=== PATIENT | female | born 1940 | race Caucasian/White ===

== ENCOUNTER 2016-09-02 11:25 | Outpatient (CLI) | payer MEDICARE, BC ==
[~2016-09-02] VITALS: Ht 161.3 cm; Wt 54.5 kg
[~2016-09-02 11:25] MED LIST: ASPI1TAB72 PO; CALC-52 PO; CHOL100047 PO; LEVO25TA9 PO; MULT-261 PO; RIZA5TAB34 PO; TETR-47 BOTH EYES
[2016-09-02 11:39] VITALS: Ht 161.3 cm; Wt 54.5 kg
[2016-09-02] MEDS ORDERED: DENOSUMAB 60 MG/ML INJECTION SQ ONE (11:45)
[2016-09-02 11:50] VITALS: BP 133/67; PULSE 83; RESP 16; TEMP 97.5; O2SAT 100
[2016-09-02] MEDS ORDERED: FLUT9.9S NAS (12:11)
[2016-09-02] MEDS ORDERED: FERR324T PO (12:11)
[2016-09-02] MEDS ORDERED: ASPI-557 PO (12:11)
== END 2016-09-02 12:05 | disposition home or self-care (01) ==
LOC: INF.THER 11:25
PROVIDERS: ATTEND Internal Medicine
DX: M81.0 Age-related osteoporosis without current pathological fracture (principal)
CPT/HCPCS: 96372; J0897

== ENCOUNTER 2017-09-02 08:00 | Observation (INO) ==
[2017-09-02] MEDS ORDERED: CELECOXIB 200 MG CAPSULE PO PRN (09:50)
[2017-09-02] MEDS ORDERED: RIZATRIPTAN 5 MG TABLET PO PRN (09:50)
[2017-09-02] MEDS ORDERED: ALBUTEROL 2.5mg/3ml (0.083%) NEB AEROSOL PRN (09:50)
[2017-09-02] MEDS: FLECAINIDE 100 MG TABLET PO SCH ×2 (10:49→22:13)
[2017-09-02] MEDS ORDERED: SALINE FLUSH 10ml SYRINGE IV PRN (10:53)
--- NOTE | 2017-09-02 11:09 | Cardiology History & Physical ---
History of Present Illness Chief complaint: palpitations HPI: Michelle is a 76 year old female who is known to Dr. Duncan's practice with a history of supraventricular tachycardia who recently had a Holter which showed Non-sustained Ventricular tachycardia and is being admitted to observation for antiarrhythmic therapy with Flecainide 50mg BID. Review of Systems - Constitutional Constitutional: Absent: chills, fatigue, fever(s) - EENMT Eyes: Absent: change in vision Balance: Absent: vertigo Mouth/Throat: Absent: sore throat - Cardiovascular Cardiovascular: Present: palpitations. Absent: chest pain, syncope, dyspnea on exertion, orthopnea, heart murmur Rhythm: Present: abnormal rhythm - Respiratory Respiratory: Absent: cough, dyspnea, dyspnea on exertion - Gastrointestinal Gastrointestinal: Absent: abdominal pain, constipation, diarrhea, nausea, vomiting - Genitourinary Genitourinary: Absent: dysuria - Integumentary/Breasts Integumentary: Absent: rash - Neurological Neurological: Absent: dizziness - Endocrine Endocrine: Present: palpitations PFSH Patient Stated Medical History Celiacs disease Yes Thyroid disease Yes Migraine Yes Hearing Loss Yes Cardiac Arrhythmia Yes Other Respiratory Yes: allergies Osteoarthritis Yes Other Musculoskeletal Yes: scoliosis Surgical History: Hysterectomy Family History: Father - COPD Mother - OA, Alzheimer's disease - Social History Smoking status: Never smoker Substance use type: does not use Alcohol intake frequency: does not drink Household members: spouse Current occupational status: retired Current residence: Apartment/Private Home Medications Home Medications Medication Instructions Recorded Confirmed Type Rizatriptan Benzoate [Maxalt] 5 mg PO BID PRN #0 06/24/14 09/02/17 History Calcium Carbonate [Calcium] 600 mg PO BID #0 06/22/15 09/02/17 History Levothyroxine Sodium 25 mcg PO DAILY #0 06/22/15 09/02/17 History Multivitamin [Multiple Vitamins] 1 tab PO DAILY #0 06/22/15 09/02/17 History Aspirin [Aspir 81] 81 mg PO DAILY #30 tab 09/02/16 09/02/17 History Fluticasone Propionate [Flonase 2 spray FILI HS #0 09/02/16 09/02/17 History Allergy Relief] Albuterol HFA Inhaler [Ventolin 2 puff ORAL INH Q4H PRN 09/02/17 09/02/17 History Hfa 90 mcg/actuation] Celecoxib 200 mg PO DAILY PRN 09/02/17 09/02/17 History Loratadine [Claritin] 10 mg PO DAILY 09/02/17 09/02/17 History Flecainide [Tambocor] 50 mg PO BID #30 tab 09/03/17 Rx Allergies Allergy/AdvReac Type Severity Reaction Status Date / Time gluten Allergy Intermediate Verified 09/02/17 08:39 latex Allergy Intermediate RASH AND Verified 09/02/16 11:53 BREAK OUT omeprazole Allergy Mild ITCHING, Verified 09/02/16 11:53 HEADACHE pantoprazole Allergy Mild ITCHING, Verified 09/02/16 11:53 HEADACHE alendronate sodium Allergy Unknown Itching Verified 09/02/17 08:39 divalproex sodium Allergy Unknown Verified 09/02/17 08:39 Penicillins Allergy Unknown Itching Verified 09/02/17 08:39 risedronate sodium Allergy Unknown Itching Verified 09/02/17 08:39 hydrocodone bit Allergy Mild Itching Uncoded 09/02/17 08:39 Exam Vital signs: Temperature 96.9 F 09/02/17 08:18 Pulse Rate 75 09/02/17 09:30 Respiratory Rate 16 09/02/17 08:18 Blood Pressure 134/65 09/02/17 08:18 Pulse Oximetry 98 09/02/17 08:18 - Constitutional no acute distress, well nourished, cooperative - Routine HEENT Exam Head: Present: normocephalic ENT: Present: mucous membranes moist - Routine Neck Exam Absent: JVD, carotid bruit - Routine Chest/Breast/Axilla Exam Chest wall: Absent: tenderness - Routine Respiratory Exam Present: CTA bilaterally. Absent: rales, wheezes - Routine Cardiovascular Exam Present: RRR, S1, S2, no murmur. Absent: JVD - Routine Abdominal Exam Present: soft, non tender - Routine Extremities Exam Present: no edema - Routine Skin Exam Present: intact, dry, warm - Routine Neurological Exam Present: alert, oriented X3 - Routine Psychiatric Exam Present: normal affect, normal thought process Results 09/02/17 09:10 09/03/17 04:08 Cardiac Enzymes 09/02/17 Range/Units 09:10 AST 54 H (14-36) U/L CBC 09/02/17 Range/Units 09:10 WBC 5.0 (4.5-11.0) T/MM3 RBC 4.40 (4.00-5.20) M/MM3 Hgb 13.0 (12-16) GM/DL Hct 39.8 (36-46) % Plt Count 143 (130-400) T/MM3 Neut # (Auto) 3.1 (1.8-7.7) T/MM3 Lymph # (Auto) 1.3 (1-4.8) T/MM3 [place] # (Auto) 0.6 (0-0.8) T/MM3 Eos # (Auto) 0.1 (0-0.5) T/MM3 Baso # (Auto) 0.0 (0-0.2) T/MM3 Comprehensive Metabolic Panel 09/02/17 Range/Units 09:10 Sodium 144 (134-144) MEQ/L Potassium 3.8 (3.6-5) MEQ/L Chloride 101 (98-107) MEQ/L Carbon Dioxide 33 H (22-30) MEQ/L BUN 22.0 H (7-17) MG/DL Creatinine 0.8 (0.7-1.2) mg/dL Glucose 89 (65-110) MG/DL Calcium 10.1 (8.4-10.2) MG/DL AST 54 H (14-36) U/L ALT 48 H (1-35) U/L Alkaline Phosphatase 128 H (38-126) U/L Total Protein 8.0 (6.3-8.2) g/dL Albumin 4.4 (3.5-5.0) g/dL Intake and Output 09/01/17 09/02/17 09/02/17 22:59 06:59 14:59 Other: Weight 117 lb 1.047 oz Patient Weight 09/03/17 06:59 Weight 117 lb 1.047 oz EKG interpretations - EKG EKG results cardiology: sinus rhythm Hospital Course This is a general summary of the patient's hospital course. For more details refer to the complete medical record. Time spent with patient: 25 - 35 minutes Resuscitation Status: Full Code Assessment and Plan - Attestation Attestation Narrative: 09/03/17 07:53 Recommendation After examining the patient I agree with the above assessment. I am involved in the formulation of the patient's plan of care. - Assessment and Plan (1) Ventricular tachycardia Current visit: No Status: Acute Recently had a Holter which showed Non-sustained Ventricular tachycardia and is being admitted to observation for antiarrhythmic therapy with Flecainide 50mg BID. - EKG: SR - CBC, CMP, MAG, TSH - Monitor cardiac telemetry - EKG in am (2) Supraventricular tachycardia Current visit: No Status: Chronic
[2017-09-02] MEDS ORDERED: Rizatriptan 10 mg tablet PO PRN (11:45)
[2017-09-02 15:57] VITALS: RESP 16
[2017-09-02] MEDS: CALCIUM CARBONATE 600 MG TABLET PO SCH (20:20)
[2017-09-02] MEDS ORDERED: FLUTICASONE NASAL SPRAY 50mcg EA NOSTRIL SCH (21:00)
[2017-09-02] MEDS: LORATADINE 10 MG TABLET PO SCH (22:14)
[2017-09-03] MEDS ORDERED: LEVOTHYROXINE 25 MCG TABLET PO SCH (06:30)
[2017-09-03 07:54] VITALS: BP 125/67; TEMP 96.5; O2SAT 97
[2017-09-03] MEDS: CALCIUM CARBONATE 600 MG TABLET PO SCH (08:18)
[2017-09-03] MEDS: FLECAINIDE 100 MG TABLET PO SCH (08:19)
[2017-09-03] MEDS: LORATADINE 10 MG TABLET PO SCH (08:19)
[2017-09-03] MEDS ORDERED: MULTI-VITAMIN + MINERAL TABLET PO SCH (09:00)
[2017-09-03] MEDS ORDERED: ASPIRIN *EC* 81 MG TABLET PO SCH (09:00)
[2017-09-03 10:53] VITALS: PULSE 100
== END 2017-09-03 10:20 | disposition home or self-care (01) ==
LOC: MED
PROVIDERS: ADMIT Internal Medicine Cardiovascular Disease; ATTEND Internal Medicine Cardiovascular Disease